=== PATIENT | female | born 1960 | race Two or more races ===

== ENCOUNTER 2020-04-12 07:10 | Day surgery (SDC) | payer OTHER | END 2020-04-12 12:12 | disposition home or self-care (01) | LOC: AMB-ENDOS 07:10 | DX: D13.1 Benign neoplasm of stomach (principal); D13.2 Benign neoplasm of duodenum; K31.7 Polyp of stomach and duodenum ==

== ENCOUNTER 2020-05-08 08:23 | Outpatient (CLI) | payer OTHER | END 2020-05-08 08:31 | disposition home or self-care (01) | LOC: RX STUDY 08:23 | PROVIDERS: ATTEND Surgery | DX: K21.0 Gastro-esophageal reflux disease with esophagitis (principal); K29.00 Acute gastritis without bleeding ==